=== PATIENT | male | born 1960 | race Caucasian/White ===

== ENCOUNTER 2019-07-01 22:56 | Emergency (ER) | payer MEDICAID, OTHER ==
--- NOTE | 2019-07-01 23:12 | EDM.PDOC ---
ED HPI GENERAL MEDICAL PROBLEM - General Chief Complaint: Gastrointestinal Problem Stated Complaint: HEMROID ISSUES WANTS LANCED Time Seen by Provider: 07/01/19 23:12 - History of Present Illness INITIAL COMMENTS - FREE TEXT/NARRATIVE: 59-year-old male presents emergency room with a painful hemorrhoid. This is been going on for over 24 hours now the patient has had recurrent problems with these. He is requesting that he gets opened and drained. Patient is visiting here from [place] on a hunting trip. He has not had any fevers or chills no nausea no vomiting no constipation or diarrhea. However he did drive most the day today. Rectal Pain Score (Numeric/FACES): 10 - Related Data Allergies Allergy/AdvReac Type Severity Reaction Status Date / Time No Known Allergies Allergy Verified 07/01/19 23:08 Home Meds: Home Meds Cholesterol. 1 tab PO DAILY 07/01/19 [History] Heartburn. 1 tab PO DAILY 07/01/19 [History] Past Medical History Cardiovascular History: Reports: High Cholesterol Gastrointestinal History: Reports: GERD Social & Family History - Tobacco Use Smoking Status *Q: Former Smoker Used Tobacco, but Quit: Yes Month/Year Tobacco Last Used: 2016 - Caffeine Use Caffeine Use: Reports: Coffee - Recreational Drug Use Recreational Drug Use: No ED ROS GENERAL - Review of Systems Review Of Systems: See Below Constitutional: Reports: No Symptoms HEENT: Reports: No Symptoms Respiratory: Reports: No Symptoms Cardiovascular: Reports: No Symptoms Endocrine: Reports: No Symptoms GI/Abdominal: Denies: Abdominal Pain, Bloody Stool, Constipation, Diarrhea, Nausea, Vomiting : Reports: No Symptoms ED EXAM, GI/ABD - Physical Exam Exam: See Below Exam Limited By: No Limitations General Appearance: Alert, No Apparent Distress Respiratory/Chest: No Respiratory Distress, Lungs Clear, Normal Breath Sounds Cardiovascular: Regular Rate, Rhythm, No Edema, No Murmur GI/Abdominal Exam: Normal Bowel Sounds, Soft, Non-Tender Rectal (Males) Exam: Other (He has 2 very large posterior hemorrhoids they do not appear to have thrombosed.) ED ABDOMINAL/GI PROCEDURES - Additional/Other Procedure(s) Procedure(s) (Free Text): The patient's rectal area including the external hemorrhoids were prepped with Betadine and draped he received anesthesia consisting of 2 mL 1% lidocaine without epinephrine. Satisfactory anesthesia was confirmed using 11 blade the anteriormost hemorrhoid was drained good results small amount of cloudy material did come out the more posterior hemorrhoid was drained with some results were some retained cloudy material inside. Patient felt much better after this was done. No complications. Course - Vital Signs Last Recorded V/S: Last Vital Signs Temp 36.6 C 07/01/19 23:06 Pulse 88 07/01/19 23:06 Resp 16 07/01/19 23:06 BP 175/95 H 07/01/19 23:06 Pulse Ox 96 07/01/19 23:06 - Orders/Labs/Meds Meds: Medications Discontinued Medications Generic Name Dose Route Start Last Admin Trade Name Freq PRN Reason Stop Dose Admin Lidocaine HCl 10 ml 07/01/19 23:23 07/01/19 23:49 Xylocaine 1% INJECT 07/01/19 23:24 10 ml ONETIME ONE Administration Departure - Departure Time of Disposition: 00:19 Disposition: Home, Self-Care 01 Clinical Impression: Hemorrhoids, external - Discharge Information Referrals: PCP,Not In Area [Primary Care Provider] - Forms: ED Department Discharge Additional Instructions: Return to the emergency room with any questions problems worsening symptoms. Use the cream you were given at the [facility] emergency room, after every cleaning and after every soak. Warm Epsom salts sitz baths for 15-20 minutes 5-6 times a day. Tylenol for discomfort. Follow-up with your regular doctor soon as you get home.
[2019-07-01] MEDS ORDERED: Lidocaine 1% 10 ML MDV INJECT ONE (23:23)
== END 2019-07-02 00:26 | disposition home or self-care (01) ==
LOC: JD.ED 22:56
DX: K64.4 Residual hemorrhoidal skin tags (principal); E78.00 Pure hypercholesterolemia, unspecified; Z79.899 Other long term (current) drug therapy; Z87.891 Personal history of nicotine dependence
CPT/HCPCS: 46083; 99282; J2001

== ENCOUNTER 2019-07-03 06:48 | Emergency (ER) | payer MEDICAID, OTHER ==
--- NOTE | 2019-07-03 07:25 | EDM.PDOC ---
ED HPI GENERAL MEDICAL PROBLEM - General Chief Complaint: General Stated Complaint: HEMORRHOIDS Time Seen by Provider: 07/03/19 06:57 - History of Present Illness INITIAL COMMENTS - FREE TEXT/NARRATIVE: 59-year-old male returns emergency room with hemorrhoid problems. Patient was seen yesterday morning by me with a painful hemorrhoid. This was successfully drained the patient felt much better he was instructed to do sitz baths he has also been doing walking around some yesterday's he's actually here on a deer hunting trip. Yesterday he felt this get larger but by early this morning he noticed that it was bothersome again. - Related Data Allergies Allergy/AdvReac Type Severity Reaction Status Date / Time No Known Allergies Allergy Verified 07/03/19 06:55 Home Meds: Home Meds Cholesterol. 1 tab PO DAILY 07/01/19 [History] Heartburn. 1 tab PO DAILY 07/01/19 [History] Past Medical History Cardiovascular History: Reports: High Cholesterol Gastrointestinal History: Reports: GERD Social & Family History - Tobacco Use Smoking Status *Q: Never Smoker Second Hand Smoke Exposure: No - Caffeine Use Caffeine Use: Reports: None - Recreational Drug Use Recreational Drug Use: No ED ROS GENERAL - Review of Systems Review Of Systems: See Below Constitutional: Reports: No Symptoms Respiratory: Reports: No Symptoms Cardiovascular: Reports: No Symptoms GI/Abdominal: Reports: Constipation (He denies constipation but he has not had a BM on this trip yet) ED EXAM, GENERAL - Physical Exam Exam: See Below Exam Limited By: No Limitations General Appearance: Alert, No Apparent Distress Rectal (Males) Exam: Other (His hemorrhoid is 1/2-2/3 the size it was yesterday. Posterior aspect external.) Neurological: Alert, Oriented, Normal Cognition Course - Vital Signs Last Recorded V/S: Last Vital Signs Temp 37.1 C 07/03/19 06:53 Pulse 71 07/03/19 06:53 Resp 19 07/03/19 06:53 BP 162/102 H 07/03/19 06:53 Pulse Ox 98 07/03/19 06:53 - Re-Assessments/Exams Free Text/Narrative Re-Assessment/Exam: 07/03/19 07:[address] Rausch surgeon front clerk. He advised to call Dr. Cao who will be in the office today to have a look at this. I was able to get a hold of Dr. Cao who is kind enough to see the patient in the office. He recommends the patient be there for a 9:00 appointment. Departure - Departure Time of Disposition: 07:28 Disposition: Home, Self-Care 01 Clinical Impression: Hemorrhoids, external - Discharge Information Referrals: PCP,None [Primary Care Provider] - Jocy Cao MD [Physician] - Additional Instructions: Follow-up with Dr. Cao at the [facility] across the street. Be there shortly before 9:00 this morning.
== END 2019-07-03 07:38 | disposition home or self-care (01) ==
LOC: JD.ED 06:48
DX: K64.4 Residual hemorrhoidal skin tags (principal); E78.00 Pure hypercholesterolemia, unspecified; Z79.899 Other long term (current) drug therapy
CPT/HCPCS: 99281; 99282